=== PATIENT | female | born 1950 | race Caucasian/White ===

== ENCOUNTER 2024-05-22 17:08 | Emergency (ER) | payer OTHER, MEDICAID ==
[~2024-05-22] VITALS: Ht 147.3 cm; Wt 65.3 kg
[~2024-05-22 17:08] MED LIST: ACET-9882 PO; ATEN50TA2 PO; BENA40TA17 PO; GLIM4TAB42 PO; LOSA50TA66 PO; METF-1197 PO; ORE25 PO
[2024-05-22 17:16] VITALS: BP 164/60; PULSE 64; RESP 15; TEMP 98.6; O2SAT 98
[2024-05-22 19:05] VITALS: BP 156/50; PULSE 80; RESP 20; TEMP 98; O2SAT 98
== END 2024-05-22 19:05 | disposition home or self-care (01) ==
LOC: MED 17:08
DX: S09.90XA Unspecified injury of head, initial encounter (principal); S20.229A Contusion of unspecified back wall of thorax, initial encounter; E11.9 Type 2 diabetes mellitus without complications; I10 Essential (primary) hypertension; I25.10 Atherosclerotic heart disease of native coronary artery without angina pectoris; Z79.899 Other long term (current) drug therapy; W01.198A Fall on same level from slipping, tripping and stumbling with subsequent striking against other object, initial encounter; Y92.89 Other specified places as the place of occurrence of the external cause; Y93.89 Activity, other specified; Y99.8 Other external cause status
CPT/HCPCS: 70450; 71045; 72072; 99284; Q0092